=== PATIENT | male | born 1950 | race Caucasian/White ===

== ENCOUNTER 2022-03-15 07:07 | Observation (INO) | payer MEDICARE, BC ==
[2022-03-13 15:14] LABS: BASOPHILS % 0.4 % (0.0-1.0); EOSINOPHILS # (AUTO) 0.2 (0.0-0.4); EOSINOPHILS % 2.3 % (0.0-6.0); HEMATOCRIT 46.6 % (38.2-49.6); LYMPHOCYTES # (AUTO) 2.3 (1.0-3.2); LYMPHOCYTES % 29.3 % (18.0-39.1); MEAN CORPUSCULAR HEMOGLOBIN 31.1 pg (28-32); MEAN CORPUSCULAR HGB CONC 32.2 g/dL (31-35); MEAN CORPUSCULAR VOLUME 96.7 fL (81-99); MONOCYTES # (AUTO) 0.6 (0.2-0.8); MONOCYTES % 7.2 % (4.4-11.3); NEUTROPHILS # (AUTO) 4.8 (2.1-6.9); NEUTROPHILS % 60.5 % (38.7-80.0); PLATELET COUNT 258 x10e3/uL (140-360); RED BLOOD COUNT 4.82 x10e6/uL (4.3-5.7); RED CELL DISTRIBUTION WIDTH 12.5 % (11.7-14.4)
[2022-03-13 15:28] LABS: INR 0.89; PROTHROMBIN TIME 12.9 seconds (11.9-14.5)
[2022-03-13 15:29] LABS: PARTIAL THROMBOPLASTIN TIME 26.3 seconds (23.8-35.5)
[2022-03-13 15:35] LABS: ANION GAP 14.7 mmol/L (8-16); CALCIUM 9.5 mg/dL (8.4-10.2); CREATININE, SERUM 1.02 mg/dL (0.72-1.25); POTASSIUM 4.7 mmol/L (3.5-5.1)
[~2022-03-15] VITALS: Ht 170.2 cm; Wt 78.9 kg
[~2022-03-15 07:07] MED LIST: AIRBORNE GUMMI1 EACH PO; AZILECT1 MG PO; B12 PO; CARBIDOPA-LEVO1 EACH PO; CENTRUM SILVER1 EAC6 PO; LIDOCAINE HCL/EPINEPHRINE/PF 10 ML VIAL ONE; THROMBIN FOR SOLN 5,000 UNIT VIAL ONE; VITAMIN D350 MCG PO; Vancomycin IV 1 GM VIAL ONE; [UNRECOGNIZED DRUG - OTHER] PO
[2022-03-15] MEDS ORDERED: HYDROCODON-ACE1 EA12 PO (09:07)
[2022-03-15] MEDS ORDERED: ACETAMINOPHEN 325 MG TAB PO PRN (09:15)
[2022-03-15] MEDS ORDERED: MAGNESIUM/ALUMINUM/SIMETHICONE 30 ML UDC PO PRN (09:15)
[2022-03-15] MEDS ORDERED: ONDANSETRON HCL INJ 2MG/ML 2ML 2 MG/ML VIAL IV PRN (09:15)
[2022-03-15] MEDS ORDERED: ZOLPIDEM TARTRATE 5 MG TAB PO PRN (09:15)
[2022-03-15] MEDS ORDERED: Morphine 4mg INJECTION 4 MG/ML INJ IM PRN (09:15)
[2022-03-15] MEDS ORDERED: OXYCODONE/ACETAMINOPHEN 5-325 1 EACH TABLET PO PRN (09:15)
[2022-03-15] MEDS ORDERED: HYDROMORPHONE 2MG/ML 2 MG/ML ML IV PRN (09:15)
[2022-03-15] MEDS ORDERED: CARISOPRODOL 350 MG TAB PO PRN (09:15)
[2022-03-15] MEDS ORDERED: PROMETHAZINE HCL (IM) 25 MG/ML VIAL IM PRN (09:15)
[2022-03-15] MEDS ORDERED: FENTANYL CITRATE/PF 100MCG/2 ML INJ ONE ×2 (09:49→13:29)
[2022-03-15 11:00] VITALS: BP 131/72
[2022-03-15 11:44] VITALS: BP 131/72
[2022-03-15] MEDS: OXYCODONE/ACETAMINOPHEN 5-325 1 EACH TABLET PO PRN ×2 (12:41→18:49)
[2022-03-15] MEDS: LACTATED RINGER'S 1,000 ML IV SCH (12:43)
[2022-03-15] MEDS ORDERED: CARBIDOPA/LEVODOPA 10/100 TAB PO SCH (13:00)
[2022-03-15] MEDS ORDERED: MIDAZOLAM HCL 2 MG/2 ML VIAL ONE (13:29)
[2022-03-15] MEDS ORDERED: PROPOFOL IV EMULSION 10 MG/ML 20 ML VIAL ONE (13:45)
[2022-03-15] MEDS ORDERED: LIDOCAINE HCL 2% LOCAL INJ 5 ML SDV VIAL INJ ONE (13:45)
[2022-03-15] MEDS ORDERED: DEXAMETHASONE SOD PHOS INJ 4 MG/ML SDV ONE (13:45)
[2022-03-15] MEDS ORDERED: NEOSTIGMINE 1 MG/ML 10ML VIAL ONE (13:45)
[2022-03-15] MEDS ORDERED: GLYCOPYRROLATE INJ 0.2 MG/ML VIAL ONE (13:45)
[2022-03-15] MEDS ORDERED: ONDANSETRON HCL INJ 2MG/ML 2ML 2 MG/ML VIAL ONE (13:45)
[2022-03-15] MEDS ORDERED: ROCURONIUM BROMIDE 10 MG/ML 5ML VIAL IV ONE (13:45)
[2022-03-15 15:48] VITALS: BP 120/76
[2022-03-15] MEDS: CARBIDOPA/LEVODOPA 25/100 TAB PO SCH ×2 (17:30→21:24)
[2022-03-15 20:00] VITALS: BP 120/83
[2022-03-16] VITALS: BP 111/71
[2022-03-16] MEDS: LACTATED RINGER'S 1,000 ML IV SCH ×3 (03:40→12:00)
[2022-03-16 04:00] VITALS: BP 114/68
[2022-03-16] MEDS: CARBIDOPA/LEVODOPA 25/100 TAB PO SCH ×2 (06:06→08:53)
[2022-03-16] MEDS ORDERED: ONDANSETRON HCL 4 MG ORAL DISINTEGRATING TAB PO PRN (07:15)
[2022-03-16 07:59] VITALS: BP 119/73
[2022-03-16] MEDS ORDERED: [UNRECOGNIZED DRUG - OTHER] PO SCH (09:00)
[2022-03-16] MEDS ORDERED: [UNRECOGNIZED DRUG - OTHER] PO SCH (09:00)
[2022-03-16] MEDS ORDERED: CHOLECALCIFEROL 1,000 UNIT TAB PO SCH (09:00)
[2022-03-16] MEDS ORDERED: RASAGILINE 1 MG TAB PO SCH (09:00)
[2022-03-16] MEDS ORDERED: B12 PO SCH (09:00)
[2022-03-16 09:04] VITALS: BP 119/73
[2022-03-16 12:05] VITALS: BP 123/68
== END 2022-03-16 12:30 | disposition home or self-care (01) ==
LOC: OR 07:07 → PACU V 09:06 → MED/SURG 10:33
PROVIDERS: ADMIT Neurological Surgery; ATTEND Neurological Surgery
DX: M48.062 Spinal stenosis, lumbar region with neurogenic claudication (principal); Z01.818 Encounter for other preprocedural examination; Z20.822 Contact with and (suspected) exposure to COVID-19
CPT/HCPCS: 0223U; 36415; 63047; 63048; 71046; 72020; 80048; 85025; 85610; 85730; 86850; 86900; 88304; 88311; 93005; 97162; 97530; G0378 ×2; J0690 ×2; J1100; J2001; J2250; J2405; J2704; J2710; J3010; J3370; J7121 ×2

== ENCOUNTER → 2023-08-21 | Day surgery (SDC) | payer MEDICARE, BC ==
[~2023-08-21] MED LIST changes: +GABAPENTIN300 MG PO; +HYDROCODON-ACE1 EA12 PO; +LACTATED RINGER'S 1,000 ML BAG ONE; +LACTATED RINGER'S 1,000 ML ONE; +LIDOCAINE HCL 2% LOCAL INJ 5 ML SDV VIAL INJ ONE; -LIDOCAINE HCL/EPINEPHRINE/PF 10 ML VIAL ONE; +NABUMETONE500 MG PO; +PROPOFOL IV EMULSION 10 MG/ML 20 ML VIAL ONE; +ROPINIROLE HC0.25 MG PO; +STOOL SOFTENER50 MG PO; -THROMBIN FOR SOLN 5,000 UNIT VIAL ONE; +TURMERIC1 GM PO; -Vancomycin IV 1 GM VIAL ONE
[2023-08-21 11:10] VITALS: TEMP 97.2
[2023-08-21 11:25] VITALS: BP 116/81; PULSE 76; RESP 16; O2SAT 98
== END | disposition home or self-care (01) ==
LOC: OR 09:59
PROVIDERS: ATTEND Physical Medicine & Rehabilitation Pain Medicine
DX: M47.896 Other spondylosis, lumbar region (principal); M54.16 Radiculopathy, lumbar region; M41.9 Scoliosis, unspecified; M48.061 Spinal stenosis, lumbar region without neurogenic claudication; R93.7 Abnormal findings on diagnostic imaging of other parts of musculoskeletal system; G47.33 Obstructive sleep apnea (adult) (pediatric); G89.29 Other chronic pain; K44.9 Diaphragmatic hernia without obstruction or gangrene; Z88.6 Allergy status to analgesic agent; Z88.8 Allergy status to other drugs, medicaments and biological substances; G20.A1 Parkinson's disease without dyskinesia, without mention of fluctuations; Z79.899 Other long term (current) drug therapy
CPT/HCPCS: 64493; 64494; 64495; J2001; J2704; J7121; 77002

== ENCOUNTER → 2025-02-10 | Outpatient (REF) | payer MEDICARE, BC ==
[~2025-02-10] MED LIST changes: -LACTATED RINGER'S 1,000 ML BAG ONE; -LACTATED RINGER'S 1,000 ML ONE; -LIDOCAINE HCL 2% LOCAL INJ 5 ML SDV VIAL INJ ONE; -PROPOFOL IV EMULSION 10 MG/ML 20 ML VIAL ONE
== END ==
LOC: DX 10:43
PROVIDERS: ATTEND Physician Assistant
DX: G20.B2 Parkinson's disease with dyskinesia, with fluctuations (principal); R13.10 Dysphagia, unspecified
CPT/HCPCS: 74230